=== PATIENT | female | born 1945 ===

== ENCOUNTER 2017-04-09 08:35 | Inpatient (IN) | payer OTHER ==
--- NOTE | 2017-04-09 09:58 | RAD ---
PROCEDURE: Right Wrist Radiographs. HISTORY: fall COMPARISON: None. FINDINGS: BONES: Comminuted distal radial metaphyseal / epiphyseal fracture with radiocarpal joint extension. The radial styloid is to 3 mm radially displaced. On the lateral view the comminuted fracture fragments are are volarly and dorsally mildly displayed. No angulation deformity suggested Calcification projects over the peripheral fibrocartilage complex . There is focal sclerosis of the ulnar styloid systemic no displaced fracture here noted. JOINTS: . No dislocation. SOFT TISSUES: Normal. OTHER FINDINGS: None. IMPRESSION: Distal radial comminuted fracture with radiocarpal joint extension
--- NOTE | 2017-04-09 10:23 | C.PDOC ---
History Of Present Illness 71 y/o female presents to ED s/p fall for evaluation of right wrist pain and deformity. Pt states that she sustained right wrist injury while trying to block her fall with her right hand. Denies head injury, LOC, or change in sensation. Time Seen by Provider: 04/09/17 09:04 Chief Complaint (Nursing): Upper Extremity Problem/Injury History Per: Patient History/Exam Limitations: no limitations Onset/Duration Of Symptoms: Hrs Current Symptoms Are (Timing): Still Present Quality: "Pain" Exacerbating Factor(s): Nothing Recent travel outside of the [place]: No Additional History Per: Patient Past Medical History Reviewed: Historical Data, Nursing Documentation, Vital Signs Vital Signs: Last Vital Signs Temp 97.4 F L 04/09/17 08:41 Pulse 69 04/09/17 08:41 Resp 20 04/09/17 08:41 BP 153/80 H 04/09/17 08:41 Pulse Ox 99 04/09/17 08:41 - Medical History PMH: No Chronic Diseases Family History: States: Unknown Family Hx - Social History Hx Alcohol Use: No Hx Substance Use: No - Immunization History Hx Tetanus Toxoid Vaccination: Yes (2012) Hx Influenza Vaccination: No Hx Pneumococcal Vaccination: No Review Of Systems Except As Marked, All Systems Reviewed And Found Negative. Constitutional: Negative for: Fever, Chills Musculoskeletal: Positive for: Hand Pain (right wrist ) Skin: Negative for: Rash Neurological: Negative for: Headache, Dizziness Physical Exam - Physical Exam Appears: Non-toxic, No Acute Distress Skin: Warm, Dry, Other (abrasion to ulnar aspect of right wrist) Head: Atraumatic, Normacephalic ED Course And Treatment O2 Sat by Pulse Oximetry: 99 (RA) Pulse Ox Interpretation: Normal Disposition - Disposition - Scribe Statement The provider has reviewed the documentation as recorded by the Scribe Dillon Freedman All medical record entries made by the Scribe were at my direction and personally dictated by me. I have reviewed the chart and agree that the record accurately reflects my personal performance of the history, physical exam, medical decision making, and the department course for this patient. I have also personally directed, reviewed, and agree with the discharge instructions and disposition.
--- NOTE | 2017-04-09 10:27 | C.PDOC ---
History Of Present Illness 71 y/o female presents to ED s/p fall for evaluation of right wrist pain and deformity. Pt states that she sustained right wrist injury while trying to block her fall with her right hand. Denies head injury, LOC, or change in sensation. Time Seen by Provider: 04/09/17 09:04 Chief Complaint (Nursing): Upper Extremity Problem/Injury History Per: Patient History/Exam Limitations: no limitations Onset/Duration Of Symptoms: Hrs Current Symptoms Are (Timing): Still Present Quality: "Pain" Exacerbating Factor(s): Nothing Recent travel outside of the [place]: No Additional History Per: Patient Past Medical History Reviewed: Historical Data, Nursing Documentation, Vital Signs Vital Signs: Last Vital Signs Temp 97.4 F L 04/09/17 08:41 Pulse 69 04/09/17 08:41 Resp 20 04/09/17 08:41 BP 153/80 H 04/09/17 08:41 Pulse Ox 99 04/09/17 10:39 - Medical History PMH: No Chronic Diseases Family History: States: No Known Family Hx - Social History Hx Alcohol Use: No Hx Substance Use: No - Immunization History Hx Tetanus Toxoid Vaccination: Yes (2012) Hx Influenza Vaccination: No Hx Pneumococcal Vaccination: No Review Of Systems Except As Marked, All Systems Reviewed And Found Negative. Constitutional: Negative for: Fever, Chills Musculoskeletal: Positive for: Hand Pain (right wrist). Negative for: Neck Pain Neurological: Negative for: Headache, Dizziness Physical Exam - Physical Exam Appears: Non-toxic, No Acute Distress Skin: Warm, Dry, Other (abrasion to ulnar aspect of right wrist) Head: Atraumatic, Normacephalic Eye(s): bilateral: Normal Inspection Cardiovascular: Rhythm Regular, No Murmur Respiratory: Normal Breath Sounds, No Rales, No Rhonchi, No Wheezing Gastrointestinal/Abdominal: Soft, No Tenderness Extremity: Normal ROM, Tenderness (right wrist), Capillary Refill (less than 2 seconds), Deformity (angulated right wrist), No Swelling Pulses: Left Radial: Normal, Right Radial: Normal Neurological/Psych: Oriented x3, Normal Speech, Normal Motor, Normal Sensation ED Course And Treatment ECG: Interpreted By Me, Viewed By Me ECG Rhythm: L BBB O2 Sat by Pulse Oximetry: 99 (RA) Pulse Ox Interpretation: Normal - Other Rad Right wrist x-ray X-Ray: Viewed By Me, Read By Radiologist Interpretation: Accession No. : [id number]. Patient Name / ID : ALEXIA HOLBROOK / [id number]. Exam Date : 04/09/2017 09:20:56 ( Approved ). Study Comment : Sex / Age : F / 71Y. Creator : Cee Charles. Dictator : Cee Charles. Career Services Manager : Secondary Education Professor : Cee Gerardo. Approver2 : Report Date : 04/09/2017 09:57:23. My Comment : . PROCEDURE: Right Wrist Radiographs. . HISTORY: fall. COMPARISON: None. FINDINGS: BONES: Comminuted distal radial metaphyseal / epiphyseal fracture with radiocarpal joint extension. The radial styloid is to 3 mm radially displaced. On the lateral view the comminuted fracture fragments are are volarly and dorsally mildly displayed. No angulation deformity suggested. Calcification projects over the peripheral fibrocartilage complex . There is focal sclerosis of the ulnar styloid systemic no displaced fracture here noted. JOINTS: . No dislocation. SOFT TISSUES: Normal. OTHER FINDINGS : None. IMPRESSION: Distal radial comminuted fracture with radiocarpal joint extension Medical Decision Making Medical Decision Making: Right wrist x-ray ordered and reviewed. Pt was given Tylenol for pain. Case discussed with Dr. Jaquez who requests to have right upper extremity CT scan. CT scan was ordered. Spoke to Dr. Maradiaga who agrees upon admission. Splint applied to right wrist. Disposition Discussed With : Donato Jaquez III Doctor Will See Patient In The: Hospital Counseled Patient/Family Regarding: Studies Performed, Diagnosis - Disposition Disposition: HOSPITALIZED Disposition Time: 10:28 Condition: GUARDED - POA Present On Arrival: None - Clinical Impression Clinical Impression: Right radial head fracture - Scribe Statement The provider has reviewed the documentation as recorded by the Scribe Kripal Freedman All medical record entries made by the Christel were at my direction and personally dictated by me. I have reviewed the chart and agree that the record accurately reflects my personal performance of the history, physical exam, medical decision making, and the department course for this patient. I have also personally directed, reviewed, and agree with the discharge instructions and disposition. Decision To Admit - Pt Status Changed To: Hospital Disposition Of: Inpatient - Admit Certification Admit to Inpatient:: After my assessment, the patient will require hospitalization for at least two midnights. This is because of the severity of symptoms shown, intensity of services needed, and/or the medical risk in this patient being treated as an outpatient. - InPatient: Physician Admission Certification: I certify that this patient requires 2 or more midnights of care for the following reason:: Patient , elderly with angulated fracture. Needs surgery and complicated by the need for medical clearance due to age. - . Bed Request Type: Regular Patient Diagnosis: Right radial head fracture
[2017-04-09 10:58] LABS: BASO # 0.1 K/uL (0.0-0.2); BASO % 0.5 % (0.0-2.0); EOS # 0.1 K/uL (0.0-0.7); EOS % 0.3 % (0.0-4.0); HEMATOCRIT 39.2 % (34.0-47.0); LYMPH % 6.3 % (20.0-40.0); MEAN CORPUSCULAR HEMOGLOBIN 29.2 pg (27.0-31.0); MEAN CORPUSCULAR HGB CONC 33.5 g/dL (33.0-37.0); MEAN PLATELET VOLUME 8.5 fL (7.2-11.7); MONO # 0.6 K/uL (0.0-0.8); MONO % 3.8 % (0.0-10.0); NRBC % 0.1 % (0.0-2.0); PLATELET COUNT 358 K/uL (130-400); WHITE BLOOD COUNT 16.4 K/uL (4.8-10.8)
--- NOTE | 2017-04-09 11:06 | RAD ---
HISTORY: SOB COMPARISON: None available. TECHNIQUE: Chest PA and lateral FINDINGS: Examination limited by habitus and hypoinflation. LUNGS: Biapical pleural thickening. No focal consolidation. Please note that chest x-ray has limited sensitivity for the detection of pulmonary masses. PLEURA: No significant pleural effusion identified. No definite pneumothorax . CARDIOVASCULAR: Heart size appears within normal limits. Ectatic aorta. OSSEOUS STRUCTURES: Degenerative changes. VISUALIZED UPPER ABDOMEN: Unremarkable. OTHER FINDINGS: None. IMPRESSION: Biapical pleural thickening.
[2017-04-09 11:23] LABS: BLOOD UREA NITROGEN 18 mg/dL (7-17); CALCIUM 9.1 mg/dl (8.6-10.4); CARBON DIOXIDE 25 mmol/L (22-30); CHLORIDE 103 mmol/L (98-107); GFR AFRICAN-AMERICAN > 60; GLUCOSE,RANDOM 87 mg/dL (65-105); POTASSIUM 3.4 mmol/L (3.6-5.2); SODIUM 139 mmol/L (132-148)
[2017-04-09 11:40] LABS: NEUTROPHIL 87 % (50-75); TOTAL CELLS COUNTED 100
--- NOTE | 2017-04-09 12:09 | CT ---
PROCEDURE: CT right wrist HISTORY: angulated fracture COMPARISON: Not available TECHNIQUE: 1.25 mm contiguous axial sections were acquired through the right wrist. Sagittal and coronal images were reformatted from the axial scan. Please note that axial images were for obtained with the patient's upper extremity positions so that they are in fact sagittal images acquired with coronal and axial reformats from the sagittal images. FINDINGS: There is a comminuted displaced distal radial fracture. There is minimal overriding of fracture fragments. There is extensive intra-articular involvement. There is extension to the distal radial ulnar articulation. There is an osseous density seen just distal to the distal ulna, possibly a displaced fracture from the distal radial comminuted fracture. There is no definite ulnar styloid process fracture. . There is no carpal fracture appreciated. Normal carpal alignment is maintained. The scapholunate interval is normal. The CMC articulations are preserved. IMPRESSION: Comminuted intra-articular distal radial fracture with displacement and mild overriding. There is a possible displaced fragment from the distal radius, now distal to the distal ulna. No definite ulnar styloid process fracture. No carpal fracture appreciated.
--- NOTE | 2017-04-09 16:49 | CP.PCM.PN ---
Subjective - Date & Time of Evaluation Date of Evaluation: 04/09/17 Time of Evaluation: 16:45 - Subjective Subjective: Progress note. Attending: Dr. Maradiaga This is a 71 yo female with past medical hx of GERD/gastritis presenting with chief complaint right arm pain. Patient was at home in living room roughly 7 10 am this morning when she tripped on a salon chair and fell backwards. She did not want to hit her head so she stuck out her right am. This happened in her living room. She then came into the hospital with right arm pain. Denies hx of falls or unsteady gait. Denies head injury or LOC. Has never happened before. There was some bleeding earlier but this is now resolved. No other sx. PMH: GERD/gastritis PSH: none Allergies: NKDA FH: non contributory Home meds: OTC advil, aleve, prilosec Social hx: denies smoking, drinking, drug use. Born in [place]. Lives at home with , daughter, grandson. Objective - Vital Signs/Intake and Output Vital Signs (last 24 hours): Temp Pulse Resp BP Pulse Ox 98.5 F 96 H 20 113/74 96 04/09/17 15:45 04/09/17 15:45 04/09/17 15:45 04/09/17 15:45 04/09/17 15:45 - Labs Labs: 04/09/17 10:51 04/09/17 10:51 PT 11.3 SECONDS (9.7-12.2) 04/09/17 11:14 INR 1.0 04/09/17 11:14 APTT 25 SECONDS (21-34) 04/09/17 11:14 - Constitutional Appears: Non-toxic, No Acute Distress - Head Exam Head Exam: ATRAUMATIC, NORMAL INSPECTION, NORMOCEPHALIC - Eye Exam Eye Exam: EOMI - ENT Exam ENT Exam: Mucous Membranes Moist - Neck Exam Neck Exam: Full ROM, Normal Inspection - Respiratory Exam Respiratory Exam: NORMAL BREATHING PATTERN. absent: Respiratory Distress - Cardiovascular Exam Cardiovascular Exam: +S1, +S2 - GI/Abdominal Exam GI & Abdominal Exam: Soft, Normal Bowel Sounds. absent: Tenderness - Extremities Exam Extremities Exam: absent: Full ROM, Normal Inspection Additional comments: right arm currently in sling, left arm full rom - Back Exam Back Exam: NORMAL INSPECTION - Neurological Exam Neurological Exam: Alert, Awake, Oriented x3 - Psychiatric Exam Psychiatric exam: Normal Affect, Normal Mood - Skin Skin Exam: Dry, Intact, Normal Color, Warm Assessment and Plan - Assessment and Plan (Free Text) Assessment: This is a 71 yo female with past medical hx of GERD/gastritis presenting with 1. Distal radius fx -wrist x ray shows distal comminuted radius fx (please see full report) -upper ext ct shows comminuted intra articular distal radius fx with displacement (please see full report) -IV morphine prn pain -ortho consult. Dr. Jaquez. recs appreciated. -NPO for procedure tomorrow -pt is low risk for moderate risk procedure. Detske score of 0. -PT evaluation 2. hx of GERD -protonix daily 3. GI/DVT ppx -scds -protonix daily discussed with Dr. Maradiaga
[2017-04-10 06:11] LABS: BASO # 0.1 K/uL (0.0-0.2); BASO % 0.6 % (0.0-2.0); EOS # 0.1 K/uL (0.0-0.7); EOS % 1.2 % (0.0-4.0); HEMATOCRIT 32.8 % (34.0-47.0); LYMPH # 1.5 K/uL (1.0-4.3); LYMPH % 15.7 % (20.0-40.0); MEAN CELL VOLUME 85.9 fL (81.0-99.0); MEAN CORPUSCULAR HEMOGLOBIN 29.9 pg (27.0-31.0); MEAN CORPUSCULAR HGB CONC 34.8 g/dL (33.0-37.0); MEAN PLATELET VOLUME 8.3 fL (7.2-11.7); MONO # 0.9 K/uL (0.0-0.8); MONO % 9.7 % (0.0-10.0); RED CELL DISTRIBUTION WIDTH 13.9 % (11.5-14.5); WHITE BLOOD COUNT 9.2 K/uL (4.8-10.8)
[2017-04-10 06:24] LABS: ALKALINE PHOSPHATASE 72 U/L (38-126); ALT/SGPT 37 U/L (9-52); AST/SGOT 21 U/L (14-36); BILIRUBIN,TOTAL 0.7 mg/dL (0.2-1.3); BLOOD UREA NITROGEN 14 mg/dL (7-17); CALCIUM 8.5 mg/dl (8.6-10.4); CARBON DIOXIDE 28 mmol/L (22-30); CHLORIDE 103 mmol/L (98-107); GFR AFRICAN-AMERICAN > 60; GLUCOSE,RANDOM 84 mg/dL (65-105); MAGNESIUM 1.5 mg/dL (1.6-2.3); PHOSPHOROUS 3.1 mg/dL (2.5-4.5); POTASSIUM 3.7 mmol/L (3.6-5.2); SODIUM 138 mmol/L (132-148); TOTAL PROTEIN 7.7 g/dL (6.3-8.3)
[2017-04-10] MEDS ORDERED: Magnesium Sulfate 1 gm in D5W 1 GM/100 ML BAG IVPB SCH (07:00)
[2017-04-10] MEDS ORDERED: Sodium Chloride 0.9% 1,000 ML IV SCH (07:00)
[2017-04-10] MEDS ORDERED: Bupivacaine 0.5% Inj(30mL) ONE (07:28)
[2017-04-10] MEDS ORDERED: Propofol 10 mg/ml Inj (20 ML) ONE (07:28)
[2017-04-10] MEDS ORDERED: Clindamycin 600mg/50ml NS 600 MG/50 ML BAG IVPB ONE (07:28)
[2017-04-10] MEDS ORDERED: Rocuronium 10 mg/ml (5 ml) ONE (07:32)
[2017-04-10] MEDS ORDERED: Lactated Ringer's 1,000 ML IV ONE (07:40)
[2017-04-10] MEDS ORDERED: Bacitracin 50,000 UNIT in Sodium Chloride 0.9% Irrig 1,000 ML IR SCH (07:53)
[2017-04-10] MEDS ORDERED: ePHEDrine 50 mg/ml Inj ONE (08:19)
[2017-04-10] MEDS ORDERED: Neostigmine Methylsulfate 3mg/3ml Syringe IV ONE (09:00)
[2017-04-10] MEDS: Enoxaparin 40 mg Syringe SC SCH ×2 (09:30→10:30)
[2017-04-10] MEDS ORDERED: Labetalol 25mg/5ml Syringe ONE (09:31)
--- NOTE | 2017-04-10 09:31 | PCM.SURG1 ---
Surgeon's Initial Post Op Note - Surgeon's Notes Surgeon: Gisele Telephone Surveyor: MAGALI Aleman Type of Anesthesia: General Endo Anesthesia Administered By: Dr Moreland Pre-Operative Diagnosis: Displaced/comminuted distal radius fx (Right) Operative Findings: as above. evidence for median nerve compression. tenosynovitis Post-Operative Diagnosis: same Operation Performed: ORIF displaced distal radius fx (Right). release transverse carpal ligament. partial median neurolysis. partial flexor tenosynovectomy. allograft bone graft. applx comression ndressing and volar splint Specimen/Specimens Removed: callous/tenosynovium Estimated Blood Loss: EBL {In ML}: 5 Blood Products Given: N/A Drains Used: No Drains Post-Op Condition: Good Date of Surgery/Procedure: 04/10/17 Time of Surgery/Procedure: 08:25 (time in room/anesthesia indcution time 7:40)
[2017-04-10] MEDS ORDERED: Bacitracin 500 Units/gm Oint Foilpak UD ONE (09:38)
[2017-04-10] MEDS ORDERED: HYDROmorphone 0.5 mg/0.5 ml ISec IVP PRN (09:59)
[2017-04-10] MEDS ORDERED: Clindamycin 600mg/50ml D5W 600 MG/50 ML VIAL IVPB SCH (10:00)
--- NOTE | 2017-04-10 10:47 | RAD ---
PROCEDURE: Right Wrist Radiographs. HISTORY: s/p ORIF distal raidus fx COMPARISON: 04/09/2017 FINDINGS: BONES: Status post ORIF comminuted distal radial fracture. Bony detail is obscured by overlying fiberglass splint. Plate and screw fixation device seen across the distal radius along its volar aspect. Fracture fragments are in near anatomic alignment. No other fracture identified. Radiocarpal articulation appears intact. Normal carpal alignment is maintained. JOINTS: As above SOFT TISSUES: Postoperative changes seen in ventral and dorsal soft tissues. OTHER FINDINGS: None. IMPRESSION: Status post ORIF comminuted intra-articular distal radial fracture
--- NOTE | 2017-04-10 11:00 | RAD ---
PROCEDURE: Intraoperative fluoroscopy HISTORY: FX. RT. WRIST COMPARISON: Not avail TECHNIQUE: Intraoperative fluoroscopy was provided for ORIF distal radial fracture. Total time of fluoroscopy was 12.0 seconds. FINDINGS: Multiple fluoroscopic spot films are submitted demonstrating progressive stages of ORIF distal radius. Films are on file for review. IMPRESSION: Fluoroscopy provided.
--- NOTE | 2017-04-10 11:03 | CARD ---
APPROVED REPORT EKG Measurement Heart [id number] <Conclusion> Normal sinus rhythm Left bundle branch block Abnormal ECG
--- NOTE | 2017-04-10 11:40 | CP.PCM.PN ---
Subjective - Date & Time of Evaluation Date of Evaluation: 04/10/17 Time of Evaluation: 13:23 - Subjective Subjective: Medicine Progress Note- Dr Maradiaga's service Patient seen and examined s/p OR this morning. Patient states that she is in pain and that her arm feels uncomfortable. The patient has not eaten yet because she does not have an appetite. Denies fever, chills, nausea, vomiting, chest pain and abdominal pain. Objective - Vital Signs/Intake and Output Vital Signs (last 24 hours): Temp Pulse Resp BP Pulse Ox 97 F L 69 11 L 128/63 99 04/10/17 09:56 04/10/17 10:15 04/10/17 10:15 04/10/17 10:15 04/10/17 10:15 Intake and Output: 04/10/17 04/10/17 06:59 18:59 Intake Total 0 50 Balance 0 50 - Medications Medications: Current Medications Enoxaparin Sodium (Lovenox) 40 mg SC DAILY [facility] Last Admin: 04/10/17 09:30 Dose: Not Given Hydromorphone HCl (Dilaudid) 0.5 mg IVP Q10M PRN PRN Reason: Pain, moderate (4-7) Stop: 04/10/17 11:59 Sodium Chloride (Sodium Chloride 0.9%) 1,000 mls @ 100 mls/hr IV .Q10H [facility] Clindamycin Phosphate (Cleocin) 600 mg in 50 mls @ 102 mls/hr IVPB Q8H [facility] Stop: 04/10/17 18:30 Morphine Sulfate (Morphine) 2 mg IVP Q4 PRN PRN Reason: Pain, severe (8-10) Last Admin: 04/09/17 22:26 Dose: 2 mg Pantoprazole Sodium (Protonix Inj) 40 mg IVP DAILY [facility] Last Admin: 04/10/17 09:30 Dose: Not Given - Labs Labs: 04/10/17 06:07 04/10/17 06:07 PT 11.3 SECONDS (9.7-12.2) 04/09/17 11:14 INR 1.0 04/09/17 11:14 APTT 25 SECONDS (21-34) 04/09/17 11:14 - Constitutional Appears: Non-toxic, No Acute Distress - Head Exam Head Exam: ATRAUMATIC, NORMOCEPHALIC - Eye Exam Eye Exam: EOMI, Normal appearance Pupil Exam: NORMAL ACCOMODATION - ENT Exam ENT Exam: Mucous Membranes Moist - Neck Exam Neck Exam: Normal Inspection - Respiratory Exam Respiratory Exam: Clear to Ausculation Bilateral, NORMAL BREATHING PATTERN - Cardiovascular Exam Cardiovascular Exam: REGULAR RHYTHM, +S1, +S2 - GI/Abdominal Exam GI & Abdominal Exam: Soft, Normal Bowel Sounds. absent: Guarding, Rigid, Tenderness - Extremities Exam Extremities Exam: absent: Pedal Edema Additional comments: Right arm in cast and elevated - Neurological Exam Neurological Exam: Alert, Awake, Oriented x3 - Psychiatric Exam Psychiatric exam: Normal Affect, Normal Mood - Skin Skin Exam: Dry, Intact, Normal Color, Warm Assessment and Plan - Assessment and Plan (Free Text) Assessment: Distal radius fx -POD#0 s/p ORIF displaced distal radius fx (Right). release transverse carpal ligament. partial median neurolysis. partial flexor tenosynovectomy. allograft bone graft. applx comression ndressing and volar splint. -wrist x ray shows distal comminuted radius fx (please see full report) -upper ext ct shows comminuted intra articular distal radius fx with displacement (please see full report) -IV morphine prn pain -ortho consult. Dr. Jaquez. recs appreciated. -pt is low risk for moderate risk procedure. Detske score of 0. -PT evaluation hx of GERD -protonix daily GI/DVT ppx -scds -protonix daily
[2017-04-10] MEDS: Magnesium Sulfate 1 gm in D5W 1 GM/100 ML BAG IVPB SCH ×2 (14:10→15:03)
[2017-04-10 15:53] VITALS: BP 124/70; PULSE 88; RESP 20; TEMP 98.8; O2SAT 95
[2017-04-10] MEDS ORDERED: Oxycodone/Acetaminophen 5/325 mg Tab PO STA (20:42)
--- NOTE | 2017-04-11 02:35 | OP ---
PROCEDURE DATE: 04/10/2017 PREOPERATIVE DIAGNOSIS: Displaced, comminuted, angulated left distal radius fracture. POSTOPERATIVE DIAGNOSES: Displaced, comminuted, angulated left distal radius fracture with median nerve compression. PROCEDURES: 1. Open reduction and internal fixation, displaced, comminuted intra-articular distal radius fracture. 2. Median neurolysis and neuroplasty. 3. Release of the transverse carpal ligament. 4. Partial flexor tenosynovectomy. 5. Autograft and allograft bone graft. 6. Application of Clifford Mccartney compression dressing and volar splint. 7. Positioning of fluoroscope, interpretation of video images. SURGEON: Donato Jaquez MD IDENTIFICATION AND RECORDS COMMANDER: Renuka Hamilton, certified registered nursing investment sales assistant. COMPLICATIONS: No complications. OPERATIVE INDICATIONS: After having obtained informed consent from the patient through her culturally competent picc nurse, her daughter and after thoroughly discussing the pros, cons, risks, and benefits of the surgical approach; the possibility of nerve injury, stiffness, delayed union, nonunion, nerve injury, painful hardware, bleeding; secondary or tertiary surgery were discussed. The patient can no longer withstand the discomfort and wished the surgery be accomplished. The surgery was accomplished after having obtained informed consent. OPERATIVE PROCEDURE: After having obtained informed consent in the above fashion and after having identified the side, site, and procedure and a critical pause/time-out and after the satisfactory induction of the anesthetic, the patient was correctly identified as Simran Castoire in the supine position with all bony prominences well padded, the left upper extremity was prepped and free-draped in the usual fashion for upper extremity surgery. The operation was performed at [facility]. The tourniquet had been applied, but was not yet inflated. After exsanguinating the limb using a 4-inch Esmarch bandage, the tourniquet which had been applied, is inflated to 250 mmHg. The operation is performed under 2.5 eyeglass magnification. An incision is described in the median palmar crease deviating distally and radially at the distal crease and deviating back proximally and ulnarly at the proximal crease. The incision is carried proximally in the plane between the palmaris longus and the flexor carpi radialis tendons. The skin incision is carried down through the skin and subcutaneous tissue. The underlying palmar aponeurosis is identified and is divided. A small flap is elevated and tagged with stay sutures. The entire extent of the transverse carpal ligament is identified and is divided. Great care is taken to avoid injury to the superficial sensory branch in the median nerve and the motor branch in the median nerve. The median nerve was found to be compressed. There is evidence of hematoma in the region of the median nerve. Under direct vision, using tenotomy scissors, a careful partial median nerve neurolysis is accomplished and there is hematoma found compressing the nerve. There is found to be extensive tenosynovitis from the trauma, again with hematoma, and a careful partial tenosynovectomy is accomplished under direct vision using the dissecting scissors. This having been accomplished, the plane between the flexor carpi radialis and the palmaris longus is developed. The pronator quadratus is identified and divided. The wrist capsule is divided. At this point in time, there is found to be some comminution. The fracture is reduced and a 3-hole locking volar plate is applied. A sequential drill hole is drilled, sounded, and the appropriate-sized screw is placed. At this point in time, under AP and lateral image intensification views, the position is found to be excellent. The wound is thoroughly irrigated. A 1 mL of allograft bone graft is accomplished with some autograft fragments. The wound is thoroughly irrigated. With bone grafting having been accomplished, closure of the skin is with interrupted 2-0 and 3-0 Vicryl and combination of nylon and robe to the proximal aspect of the incision in the forearm. Again, the position is found to be acceptable with excellent reduction and no compromise of the joint space. After closure, Clifford Mccartney compression dressing and volar splint is applied with verification of AP and lateral image intensification views. Donato Jaquez MD
[2017-04-11] MEDS ORDERED: Influenza Vaccine 60 mcg/0.5 mL SYR (4YR UP) IM ONE (10:00)
--- NOTE | 2017-04-13 08:48 | HP ---
HISTORY OF PRESENT ILLNESS: A 71-year-old female admitted to the hospital with chief complaint of fall and fracture of the right wrist with angulation. Patient came to the ER for admission to the hospital. PHYSICAL EXAMINATION: GENERAL: Patient is awake, alert and oriented. VITAL SIGNS: Temperature 98, pulse 90. HEENT: Within normal limits. NECK: Supple. CHEST: Symmetrical. HEART: Regular. ABDOMEN: Soft. EXTREMITIES: The right wrist is in a cast dressing. ASSESSMENT AND PLAN: The patient suffered from fracture of the wrist, fall. The patient will get orthopedic consult . Umesh Maradiaga MD
== END 2017-04-10 22:41 | disposition home or self-care (01) | DRG 502 ==
LOC: C.ER 08:35 → C.9E 10:29 → C.6T 12:28
PROVIDERS: ADMIT Internal Medicine Pulmonary Disease; ATTEND Internal Medicine Pulmonary Disease
PROC: 0LB50ZZ Excision of Right Lower Arm and Wrist Tendon, Open Approach (ICD-10-PCS; 2017-04-10)
PROC: 01N50ZZ Release Median Nerve, Open Approach (ICD-10-PCS; 2017-04-10)
PROC: 0PUH0KZ Supplement Right Radius with Nonautologous Tissue Substitute, Open Approach (ICD-10-PCS; 2017-04-10)
PROC: 0PSJ04Z Reposition Left Radius with Internal Fixation Device, Open Approach (ICD-10-PCS; principal; 2017-04-10 07:30)
DX: S52.571A Other intraarticular fracture of lower end of right radius, initial encounter for closed fracture (principal); G56.01 Carpal tunnel syndrome, right upper limb; W18.39XA Other fall on same level, initial encounter; S63.511A Sprain of carpal joint of right wrist, initial encounter; K21.9 Gastro-esophageal reflux disease without esophagitis; K29.70 Gastritis, unspecified, without bleeding